=== PATIENT | male | born 1975 | race Caucasian/White ===

== ENCOUNTER 2018-06-21 19:48 | Emergency (ER) | payer OTHER ==
[~2018-06-21] VITALS: Ht 182.9 cm; Wt 72.6 kg
[~2018-06-21 19:48] MED LIST: CLEOCIN HCL150 MG PO; IBUPROFEN 800800 MG PO; NORCO 5-325 TA1 EACH PO; PERCOCET 7.5-31 EACH PO; ZYRTEC 10 MG TA10 MG PO
[2018-06-21] MEDS ORDERED: ZYRTEC10 M5 PO (19:54)
[2018-06-21 21:14] LABS: INFLUENZA A ANTIGEN None Detected (None Detect); INFLUENZA B ANTIGEN None Detected (None Detect)
[2018-06-21] MEDS ORDERED: VENTOLIN HFA 1818 GM INH (22:03)
[2018-06-21] MEDS ORDERED: MEDROLDOSEPACK PO (22:03)
[2018-06-21] MEDS ORDERED: ZPAK PO (22:03)
[2018-06-21] MEDS ORDERED: PROMETH-CODEIN 65 ML PO (22:03)
[2018-06-21 22:21] VITALS: BP 129/77
== END 2018-06-21 22:20 | disposition home or self-care (01) ==
LOC: M.ERS 19:48
PROVIDERS: Emergency Medicine
DX: J20.9 Acute bronchitis, unspecified (principal); F17.210 Nicotine dependence, cigarettes, uncomplicated; Z86.14 Personal history of Methicillin resistant Staphylococcus aureus infection; Z88.1 Allergy status to other antibiotic agents; Z88.8 Allergy status to other drugs, medicaments and biological substances